=== PATIENT | female | born 1945 | race Caucasian/White ===

== ENCOUNTER 2017-08-17 11:26 | Outpatient (CLI) | payer MEDICARE ==
--- NOTE | 2017-08-17 14:46 | MMO ---
BILATERAL DIGITAL SCREENING MAMMOGRAMS: History: 72-year-old female presents for digital screening mammography. Comparison: 16, 15, 07-11-14, 06-05-13, 05-26-12 This study is interpreted with the assistance of computer aided detection. FINDINGS: Scattered areas of fibroglandular density are noted bilaterally. There is an occasional typically elver ign calcification. No direct or indirect evidence of malignancy. IMPRESSION: BIRADS category 2 - benign findings. Continued routine screening. POS: DOMINIQUE
== END 2017-08-17 11:27 | disposition home or self-care (01) ==
LOC: MAMMO 11:26
PROVIDERS: ATTEND Internal Medicine
DX: Z12.31 Encounter for screening mammogram for malignant neoplasm of breast (principal)
CPT/HCPCS: 77067; G0202

== ENCOUNTER 2018-08-23 09:53 | Outpatient (CLI) | payer MEDICARE | END 2018-08-23 09:54 | disposition home or self-care (01) | LOC: BICMAMMO 09:53 | PROVIDERS: ATTEND Internal Medicine | DX: Z12.31 Encounter for screening mammogram for malignant neoplasm of breast (principal) | CPT/HCPCS: 77063; 77067 ==

== ENCOUNTER 2018-12-07 09:02 | Outpatient (CLI) | payer MEDICARE ==
--- NOTE | 2018-12-07 09:33 | RAD ---
TWO VIEW CHEST: Comparison: 03-02-17 Clinical history: Cough FINDINGS: The lungs are clear. There is thoracic kyphosis. Cardiac silhouette is stable. There is vascular calc ification. IMPRESSION: Stable chest. POS: C
== END 2018-12-07 09:03 | disposition home or self-care (01) ==
LOC: BICRAD 09:02
PROVIDERS: ATTEND Internal Medicine
DX: R05 Cough (principal)
CPT/HCPCS: 71046

== ENCOUNTER 2019-08-28 08:10 | Outpatient (CLI) | payer MEDICARE ==
--- NOTE | 2019-08-28 08:47 | BD ---
EXAM: DEXA bone density examination HISTORY: Menopausal patient; osteoporosis screening COMPARISON: None FINDINGS: L1--bone mineral density 1.002 g/sq cm; T score 0.1. Z score 2.2 L2--bone mineral density 1.074 g/sq cm; T score 0.4; Z score 2.7 L3--bone mineral density 1.058 g/sq cm; T score -0.2; Z score 2.2 L4--bone mineral density 1.015 g/sq cm; T score -0.4, Z score 2.1 Total L1-L4--bone mineral density 1.036 g/sq cm; T score -0.1, Z score 2.3 Left femoral neck--bone mineral density0.738; T score -1.0, Z score 1.0 Total proximal left femur--bone mineral density [0.890]; T score [-0.4], Z score [1.3. ]The bone mineral density of the left femoral neck region has declined 4.6% from the baseline examina tion dated May 26, 2012. This is denoted as being statistically significant. IMPRESSION: Based on the WHO criteria, the patient's bone mineral density is consideredNormal. The p atient is at low risk for fracture. The bone mineral density of the left femoral neck region has declined 4.6% from the baseline examination dated May 26, 2012. Continued follow-up is recommended .
--- NOTE | 2019-08-28 09:04 | MMO ---
Bilateral MAMMO Bilat Screen [facility]. CLINICAL HISTORY: Patient is 74 years old and is seen for screening. The patient has no family history of breast cancer. The patient has no personal history of cancer. VIEWS: The views performed were: bilateral craniocaudal with tomosynthesis and bilateral mediolateral oblique with tomosynthesis. FILMS COMPARED: The present examination has been compared to a prior imaging study performed at [facility] on 08/23/2018. This study has been interpreted with the assistance of computer-aided detection. MAMMOGRAM FINDINGS: There are scattered fibroglandular densities. There are no suspicious masses, suspicious calcifications, or new areas of architectural distortion. IMPRESSION: THERE IS NO MAMMOGRAPHIC EVIDENCE OF MALIGNANCY. A ROUTINE FOLLOW-UP MAMMOGRAM IN 1 YEAR IS RECOMMENDED. THE RESULTS OF THIS EXAM WERE SENT TO THE PATIENT. ACR BI-RADS Category 1 - Negative MAMMOGRAPHY NOTE: 1. A negative mammogram report should not delay a biopsy if a dominant of clinically suspicious mass is present. 2. Approximately 10% to 15% of breast cancers are not detected by mammography. 3. Adenosis and dense breasts may obscure an underlying neoplasm. Reported by: SARAH GOLDEN MD Electonically Signed: [id number]
== END 2019-08-28 08:11 | disposition home or self-care (01) ==
LOC: BICMAMMO 08:10
PROVIDERS: ATTEND Internal Medicine
DX: Z12.31 Encounter for screening mammogram for malignant neoplasm of breast (principal); Z78.0 Asymptomatic menopausal state; M85.852 Other specified disorders of bone density and structure, left thigh
CPT/HCPCS: 77063; 77067; 77080

== ENCOUNTER 2020-09-12 15:24 | Outpatient (CLI) | payer MEDICARE ==
--- NOTE | 2020-09-12 16:00 | MMO ---
Bilateral MAMMO Bilat Screen [facility]. CLINICAL HISTORY: Patient is 75 years old and is seen for screening. The patient has no family history of breast cancer. The patient has no personal history of cancer. VIEWS: The views performed were: bilateral craniocaudal with tomosynthesis; bilateral mediolateral oblique with tomosynthesis; and bilateral mediolateral. FILMS COMPARED: The present examination has been compared to prior imaging studies performed at [facility] on 07/14/2016, 08/17/2017, 08/23/2018 and 08/28/2019. This study has been interpreted with the assistance of computer-aided detection. MAMMOGRAM FINDINGS: There are scattered fibroglandular densities. There are no suspicious masses, suspicious calcifications, or new areas of architectural distortion. IMPRESSION: THERE IS NO MAMMOGRAPHIC EVIDENCE OF MALIGNANCY. A ROUTINE FOLLOW-UP MAMMOGRAM IN 1 YEAR IS RECOMMENDED. THE RESULTS OF THIS EXAM WERE SENT TO THE PATIENT. ACR BI-RADS Category 1 - Negative MAMMOGRAPHY NOTE: 1. A negative mammogram report should not delay a biopsy if a dominant of clinically suspicious mass is present. 2. Approximately 10% to 15% of breast cancers are not detected by mammography. 3. Adenosis and dense breasts may obscure an underlying neoplasm. Reported by: SARAH GOLDEN MD Electonically Signed: [id number]
== END 2020-09-12 15:25 | disposition home or self-care (01) ==
LOC: BICMAMMO 15:24
PROVIDERS: ATTEND Internal Medicine
DX: Z12.31 Encounter for screening mammogram for malignant neoplasm of breast (principal)
CPT/HCPCS: 77063; 77067

== ENCOUNTER 2020-11-03 09:19 | Observation (INO) | payer MEDICARE ==
--- NOTE | 2020-11-03 11:21 | RAD ---
XR Chest 1 View Portable HISTORY: Chest pain COMPARISON: 12/07/2018 FINDINGS: The heart size is normal. The lungs are well expanded without focal areas of consolidation, pneumothorax or pleural effusions. IMPRESSION: No radiographic evidence of acute cardiopulmonary process.
[2020-11-03 12:13] LABS: Bilirubin Negative (Negative); Blood, Urine Negative (Negative); Clarity Clear (Clear); Glucose, Urine (Dipstick) Normal (Negative); Ketone, Urine Negative (Negative); Leukocyte 250 Leu/uL (Negative); Nitrite Negative (Negative); Protein, Urine (Dipstick) 10 mg/dL (Neg-Trace); RBC/HPF 0-3 HPF (0-3); Specific Gravity, Urine 1.016 (1.002-1.036); Squamous Epithelial 0-3 HPF (0-3); Urobilinogen Normal mg/dL (Less than 2); pH, Urine 5.5 (5.0-9.0)
[2020-11-03 12:14] LABS: Bacteria/HPF Rare-Few HPF (None Seen)
[2020-11-03 12:16] LABS: #Lymphocytes 1.3 thou/uL (1.20-3.40); #Monocytes 0.4 thou/uL (0.11-0.59); #Neutrophils 5.6 thou/uL (1.40-6.50); %Basophils 0.2 % (0.0-1.0); %Eosinophils 0.5 % (0.0-10.0); %Lymphocytes 17.8 % (21.0-51.0); %Neutrophils 76.6 % (42.0-75.0); Hemoglobin 13.2 g/dL (12.0-16.0); Mean Corpuscular HGB CONC 33.1 g/dL (32.0-36.0); Mean Corpuscular Volume 90.7 fL (78.0-98.0); Mean Platelet Volume 7.1 fL (7.4-10.4); Platelet Count 318 thou/uL (130-400); RBC Distribution Width 12.1 % (11.5-14.5); Red Blood Cell (RBC) Count 4.38 mill/uL (4.20-5.40); White Blood Cell (WBC) Count 7.3 thou/uL (4.8-10.8)
[2020-11-03] MEDS ORDERED: Aspirin Chewable 81 MG TAB ONE (12:28)
[2020-11-03] MEDS ORDERED: Enoxaparin Sodium 30 MG/0.3 ML SYRINGE ONE (12:29)
[2020-11-03] MEDS ORDERED: Enoxaparin Sodium 60 MG/0.6 ML SYRINGE ONE (12:29)
[2020-11-03 12:39] LABS: ALT (SGPT) 12 U/L (8-55); AST (SGOT) 14 U/L (5-34); Alkaline Phosphatase 60 U/L (40-110); Anion Gap 16 mmol/L (10-20); BUN (Urea Nitrogen) 20 mg/dL (9.8-20.1); Bilirubin, Total 0.3 mg/dL (0.2-1.2); CK (CPK) 66 U/L (29-168); Calc. Creatinine Clearance 0 mL/min (70-130); Calcium 9.1 mg/dL (7.8-10.44); Carbon Dioxide 22 mmol/L (23-31); Chloride 105 mmol/L (98-107); Globulin 2.9 g/dL (2.4-3.5); Glucose 102 mg/dL (83-110); Lipase 35 U/L (8-78); Potassium 3.9 mmol/L (3.5-5.1); Protein, Total 6.9 g/dL (5.8-8.1); Sodium 139 mmol/L (136-145)
[2020-11-03] MEDS ORDERED: Senokot S 8.6-50 MG TAB PO PRN (13:22)
[2020-11-03] MEDS ORDERED: Acetaminophen 325 MG TAB PO PRN (13:22)
[2020-11-03 14:55] LABS: Troponin I 0.017 ng/mL (< 0.028)
[2020-11-03 16:48] VITALS: BMI 31.1
[2020-11-03 19:02] LABS: Troponin I 0.012 ng/mL (< 0.028)
--- NOTE | 2020-11-03 19:17 | HP ---
CHIEF COMPLAINT: Generalized weakness. HISTORY OF PRESENT ILLNESS: The patient is a very pleasant 75-year-old female who presents to the hospital with generalized weakness starting this morning. She also has some left-sided shoulder pain and is very achy. She stated that she felt so weak. She initially thought that she will go take a shower and then when she came out, she continued to feel very tired and weak. She denies any chest tightness or diaphoresis or nausea or vomiting. At this time, her sister, who is a nurse took her pulse. Her pulse was noted to be irregular and fast. At this time, she was brought into the ER for further evaluation. One of the ER EKGs indicate atrial fibrillation, however, rate controlled. By the time she got into the ER, her rate was controlled. The patient states that this has been going on and off for the past more than 6 months. However, every time she feels tired and weak, she just sits down and that resolves. She has never really mentioned it to anybody about this. PAST MEDICAL HISTORY: She has a history of glaucoma. PAST SURGICAL HISTORY: She has had a cholecystectomy, hysterectomy and cataract surgeries. SOCIAL HISTORY: She denies any alcohol use, drug use, smoking history. She is a full code. ALLERGIES: SHE IS ALLERGIC TO SULFA. SHE GETS A RASH. MEDICATIONS: She used some eye drops. She does not know the name of it. FAMILY HISTORY: Father had atrial fibrillation and diabetes. PHYSICAL EXAMINATION: VITAL SIGNS: Temperature of 98.4, 99% on room air, respirations are 16, 100/64, pulse of 75. GENERAL: She is awake, alert, and oriented x3. Does not appear in distress. CV: S1, S2 present. She is currently in sinus rhythm. LUNGS: Clear to auscultation. No rhonchi or wheezes noted. ABDOMEN: Soft, nontender. Bowel sounds are present x2. EXTREMITIES: No edema. Pedal pulses present x2. NEUROVASCULAR: There are no focal deficits noted. SKIN: No cuts, lesions or bruises noted. LABORATORY DATA: WBCs of 7.3, hemoglobin of 13.2, hematocrit of 39.8, platelets of 318. Chemistry: Sodium 139, potassium of 3.9, BUN of 20, creatinine 0.79. Troponin x2 were negative. TSH is pending. The patient's EKG initially was atrial fibrillation, second one was sinus rhythm. Chest x-ray did not show any acute abnormalities. ASSESSMENT AND PLAN: The patient is a very pleasant 75-year-old female who presents to the hospital with atrial fibrillation and with generalized weakness. 1. Atrial fibrillation with RVR. Initially this was resolved when she came in. We will start the patient on Lovenox 1 mg/kg. We will consult Cardiology. We will get an echocardiogram and trend her troponins. 2. Hypotension. The patient's blood pressure has been very kind of low. However, she states that she runs normally low. We will continue to monitor. She is currently in sinus rhythm. 3. Deep venous thrombosis prophylaxis. She is already on Lovenox and we will continue that. Job ID: [id number]
[2020-11-03] MEDS ORDERED: Latanoprost 0.005% Ophth Soln 2.5 ml Bottle EA EYE SCH (21:00)
[2020-11-03] MEDS: Enoxaparin Sodium 100 MG/ML SYRINGE SC SCH (21:21)
[2020-11-04 01:17] LABS: SARS-CoV-2 PCR by NAA Not Detected (NotDetected)
[2020-11-04 05:41] LABS: #Eosinphils 0.1 thou/uL (0.0-0.7); #Lymphocytes 1.5 thou/uL (1.20-3.40); #Monocytes 0.3 thou/uL (0.11-0.59); #Neutrophils 3.1 thou/uL (1.40-6.50); %Basophils 0.6 % (0.0-1.0); %Eosinophils 2.6 % (0.0-10.0); %Monocytes 6.6 % (0.0-10.0); %Neutrophils 60.1 % (42.0-75.0); Hemoglobin 11.8 g/dL (12.0-16.0); Mean Corpuscular HGB CONC 33.3 g/dL (32.0-36.0); Mean Corpuscular Hemoglobin 30.2 pg (27.0-31.0); Mean Corpuscular Volume 90.7 fL (78.0-98.0); Mean Platelet Volume 7.6 fL (7.4-10.4); Platelet Count 254 thou/uL (130-400); RBC Distribution Width 12.2 % (11.5-14.5); White Blood Cell (WBC) Count 5.1 thou/uL (4.8-10.8)
[2020-11-04 06:03] LABS: Anion Gap 11 mmol/L (10-20); BUN (Urea Nitrogen) 20 mg/dL (9.8-20.1); Calc. Creatinine Clearance 95 mL/min (70-130); Calcium 8.6 mg/dL (7.8-10.44); Carbon Dioxide 23 mmol/L (23-31); Cardiac Risk 2.4 (Less than 4.5); Chloride 108 mmol/L (98-107); Cholesterol 139 mg/dl (< 200 Desired); Glucose 95 mg/dL (83-110); HDL Cholesterol 58 mg/dL (>60 Neg Risk); LDL Cholesterol, Calculated 69 mg/dL; Potassium 3.6 mmol/L (3.5-5.1); Sodium 138 mmol/L (136-145); Triglycerides 61 mg/dL (Less than 150)
[2020-11-04] MEDS: Enoxaparin Sodium 100 MG/ML SYRINGE SC SCH (07:59)
[2020-11-04] MEDS ORDERED: Aspirin Chewable 81 MG TAB PO SCH (09:00)
[2020-11-04 15:37] VITALS: BP 147/69; TEMP 98
--- NOTE | 2020-11-04 15:39 | CON ---
DATE OF CONSULTATION: REASON FOR CONSULTATION: Atrial fibrillation. HISTORY OF PRESENT ILLNESS: Ms. Torres is a 75-year-old woman with past history of hypertension, who re-presented with weakness and fatigue. She was seen and evaluated in the emergency room where she was found to be in AFib with RVR. She is since converted. She is back to baseline. Her blood pressure is also stable. PAST MEDICAL HISTORY: 1. Diastolic dysfunction. 2. Glaucoma. 3. Cholecystectomy. 4. Hysterectomy. SOCIAL HISTORY: No current tobacco or alcohol use. ALLERGIES: NONE EXCEPT FOR SULFA. HOME MEDICATIONS: None. FAMILY HISTORY: Previous history of atrial fibrillation. REVIEW OF SYSTEMS: A 10-point review of systems is reviewed as above, otherwise negative. PHYSICAL EXAMINATION: GENERAL: Patient is a pleasant woman who is in no acute distress. The patient appears their stated age. VITAL SIGNS: Blood pressure 177/76, pulse 76, and temperature afebrile. NEUROLOGIC: The patient is alert and oriented x3 with no focal neurologic deficits. HEENT: Sclerae without icterus. Mouth has moist mucous membranes with normal pallor. NECK: No JVD. Carotid upstroke brisk. No bruits bilaterally. LUNGS: Clear to auscultation with unlabored respirations. BACK: No scoliosis or kyphosis. CARDIAC: Regular rate and rhythm with normal S1 and S2. No S3 or S4 noted. No significant rubs, murmurs, thrills, or gallops noted throughout the precordium. PMI is not displaced. There is no parasternal heave. ABDOMEN: Soft, nontender, nondistended. No peritoneal signs present. No hepatosplenomegaly. No abnormal striae. EXTREMITIES: 2+ femoral and 2+ dorsalis pedis pulses. No cyanosis, clubbing, or edema. SKIN: No gross abnormalities. PERTINENT LABORATORY DATA: COVID negative. Creatinine 0.73. Hemoglobin 11.8. Troponin negative. IMPRESSION: Atrial fibrillation, now sinus rhythm. RECOMMENDATIONS: Would recommend adding Multaq 400 mg b.i.d. to keep the patient in sinus rhythm. We will also recommend Eliquis. Her CHADS-VASc score is greater than two. She is agreeable. Plan is to follow up Ms. Torres within the next week in the office. Would also recommend a 3-week event recorder, it can be arranged as an outpatient. Job ID: [id number]
--- NOTE | 2020-11-04 15:53 | PDOC.DS.DS ---
Provider Date of Admission: 11/03/20 16:22 Date of Discharge: 11/04/20 Admitting Provider: Zeina Law MD Consultations: Cardiology (Dr. Keys) Primary Care Physician: Cheri Zurita MD Course Hospital Course: Discharge diagnosis: 1. Atrial fibrillation with rapid ventricular response 2. COVID-19 test negative Hospital course: Patient is a pleasant 70-year-old lady who was admitted to the hospital on November 03, 2020 for A. fib with RVR. She converted to normal sinus rhythm following admission. She was seen by cardiology service. She has been started on Multaq and apixaban. She will be followed up by cardiology as outpatient and they also recommend a 3-week event recorder to be arranged as an outpatient. She is being discharged home in a stable condition. Many thanks for allowing me to participate in your patient's care. Please feel free to contact me with any questions or concerns. Discharge destination: Home Resuscitation Status: 11/03/20 13:22 Resuscitation Status Routine Resuscitation Status: FULL: Full Resuscitation Lab Results: 11/04/20 05:16 11/04/20 05:16 Abnormal Lab Results - Last 48 hrs 11/03/20 11:44: Ur Leukocyte Esterase 250 A, Urine WBC 11-20 A 11/03/20 12:00: Carbon Dioxide 22 L 11/03/20 12:00: MPV 7.1 L, Neutrophils % 76.6 H, Lymphocytes % 17.8 L 11/04/20 05:16: Chloride 108 H 11/04/20 05:16: RBC 3.90 L, Hgb 11.8 L, Hct 35.3 L Vitals: Vital Signs (12 hours) Temp Pulse Resp BP BP Pulse Ox 11/04/20 15:36 98 F 76 18 147/69 H 97 11/04/20 11:49 97.7 F 76 18 177/76 H 98 11/04/20 07:20 98.3 F 69 18 145/63 H 98 11/04/20 03:55 98 F 62 18 150/64 H 97 Weight Weight 199 lb Physical Exam: The patient was seen and examined on the day of discharge. Patient denies chest pain or shortness of breath. Vital signs are stable. S1 and S2 are heard. Lungs are clear to auscultation bilaterally. Plan Prescriptions: Apixaban [Eliquis] 5 mg PO BID #60 tab Dronedarone HCl [Multaq] 400 mg PO BID-WM #60 tab Home Medications: Medication Instructions Recorded Confirmed Type Bimatoprost [Lumigan 0.03% Opth 1 drop EA EYE HS 10/12/13 11/03/20 History Drop] Calcium Carbonate [Calcium] 500 mg PO DAILY 11/03/20 11/03/20 History Cholecalciferol (Vitamin D3) 1,000 unit PO DAILY 11/03/20 11/04/20 History [Vitamin D3] Apixaban [Eliquis] 5 mg PO BID #60 tab 11/04/20 Rx Dronedarone HCl [Multaq] 400 mg PO BID-WM #60 tab 11/04/20 Rx Allergies: Sulfa (Sulfonamide Antibiotics) Allergy (Verified 10/12/13 11:11) Referrals: Tesfaye Keys MD [Active] - 14 Days (Please call to make an appointment. ) Cheri Zurita MD [Primary Care Provider] - 3 Days (Please call to make an appointment. ) Disposition: HOME Quality CORE MEASURES:: N/A
[2020-11-04] MEDS ORDERED: Dronedarone HCl 400 MG TAB PO SCH (17:00)
[2020-11-04] MEDS ORDERED: Apixaban 5 MG TAB PO SCH (21:00)
== END 2020-11-04 16:40 | disposition home or self-care (01) ==
LOC: ERS 09:19 → 2NO 16:22
PROVIDERS: ADMIT Internal Medicine; ATTEND Internal Medicine
DX: I48.91 Unspecified atrial fibrillation (principal); I95.9 Hypotension, unspecified; Z20.822 Contact with and (suspected) exposure to COVID-19; Z79.01 Long term (current) use of anticoagulants; Z79.899 Other long term (current) drug therapy; Z88.2 Allergy status to sulfonamides
CPT/HCPCS: 71045; 80048; 80053; 80061; 82550; 83690; 84443; 84484 ×2; 85025 ×2; 93005; 93306; 94760; 96372; 99285; U0003; U0005; 36415; 81003; 81015; 87635; G0378; J1650

== ENCOUNTER 2021-02-16 10:51 | Emergency (ER) | payer MEDICARE ==
[2021-02-16 11:59] LABS: #Monocytes 0.5 thou/uL (0.11-0.59); #Neutrophils 6.7 thou/uL (1.40-6.50); %Basophils 0.5 % (0.0-1.0); %Eosinophils 0.6 % (0.0-10.0); %Lymphocytes 12.1 % (21.0-51.0); %Monocytes 5.5 % (0.0-10.0); %Neutrophils 81.4 % (42.0-75.0); Hemoglobin 13.5 g/dL (12.0-16.0); Mean Corpuscular HGB CONC 33.8 g/dL (32.0-36.0); Mean Corpuscular Hemoglobin 30.7 pg (27.0-31.0); Mean Corpuscular Volume 90.8 fL (78.0-98.0); Mean Platelet Volume 6.7 fL (7.4-10.4); Platelet Count 320 thou/uL (130-400); White Blood Cell (WBC) Count 8.2 thou/uL (4.8-10.8)
[2021-02-16 12:15] LABS: ALT (SGPT) 11 U/L (8-55); AST (SGOT) 13 U/L (5-34); Alkaline Phosphatase 53 U/L (40-110); Anion Gap 13 mmol/L (10-20); BUN (Urea Nitrogen) 19 mg/dL (9.8-20.1); Bilirubin, Total 0.4 mg/dL (0.2-1.2); Calc. Creatinine Clearance 0 mL/min (70-130); Calcium 9.4 mg/dL (7.8-10.44); Carbon Dioxide 22 mmol/L (23-31); Chloride 106 mmol/L (98-107); Globulin 2.8 g/dL (2.4-3.5); Glucose 105 mg/dL (83-110); Potassium 4.4 mmol/L (3.5-5.1); Protein, Total 6.8 g/dL (5.8-8.1); Sodium 137 mmol/L (136-145)
== END 2021-02-16 12:53 | disposition home or self-care (01) ==
LOC: ERS 10:51
DX: R00.2 Palpitations (principal); R53.1 Weakness; I48.91 Unspecified atrial fibrillation; Z79.899 Other long term (current) drug therapy
CPT/HCPCS: 36415; 71045; 80053; 84443; 84484; 85025; 93005; 94760

== ENCOUNTER 2021-09-15 08:28 | Outpatient (CLI) | payer MEDICARE | END 2021-09-15 08:29 | disposition home or self-care (01) | LOC: BICMAMMO 08:28 | PROVIDERS: ATTEND Internal Medicine | DX: Z12.31 Encounter for screening mammogram for malignant neoplasm of breast (principal) | CPT/HCPCS: 77063; 77067 ==

== ENCOUNTER 2022-02-18 12:34 | Outpatient (CLI) | payer MEDICARE | END 2022-02-18 12:35 | disposition home or self-care (01) | LOC: TBSIIMAG 12:34 | PROVIDERS: ATTEND Neurological Surgery | DX: D32.0 Benign neoplasm of cerebral meninges (principal); I67.82 Cerebral ischemia; G31.9 Degenerative disease of nervous system, unspecified | CPT/HCPCS: 70553 ==

== ENCOUNTER 2022-06-04 16:10 | Outpatient (CLI) | payer MEDICARE | END 2022-06-04 16:11 | disposition home or self-care (01) | LOC: BICRAD 16:10 | PROVIDERS: ATTEND Internal Medicine | DX: M25.572 Pain in left ankle and joints of left foot (principal); M19.072 Primary osteoarthritis, left ankle and foot; M77.52 Other enthesopathy of left foot and ankle; M25.872 Other specified joint disorders, left ankle and foot | CPT/HCPCS: 36415; 80053; 83520; 84550; 85025; 85652; 86038; 86200; 86225 ==

== ENCOUNTER 2022-11-11 09:53 | Outpatient (CLI) | payer MEDICARE | END 2022-11-11 09:54 | disposition home or self-care (01) | LOC: BICMAMMO 09:53 | PROVIDERS: ATTEND Internal Medicine | DX: Z12.31 Encounter for screening mammogram for malignant neoplasm of breast (principal) | CPT/HCPCS: 77063; 77067 ==